=== PATIENT | female | born 1985 | race American Indian/Alaskan Native ===

== ENCOUNTER 2016-12-24 22:48 | Emergency (ER) | payer OTHER ==
[2016-12-24 23:05] VITALS: BP 114/70; RESP 20; TEMP 98.1
[2016-12-24] MEDS ORDERED: Albuterol-Ipratrop 3 mg / 0.5 (3 ml) UD ONE (23:25)
[2016-12-24] MEDS ORDERED: Albuterol-Ipratrop 3 mg / 0.5 (3 ml) UD INH STA (23:25)
--- NOTE | 2016-12-24 23:25 | ED PDOC ---
HPI: SOB/CHF/COPD Time Seen by Provider: 12/24/16 23:13 Chief Complaint (Nursing): Shortness Of Breath Chief Complaint (Provider): asthma symptoms History Per: Patient Additional Complaint(s): 31-year-old female with history of asthma presents to emergency department with shortness of breath and wheezing that started earlier today. Patient denies cough or chest pain. Patient states that she used to use an inhaler but ran out of her inhaler a few months ago. She does not take asthma medications daily. She denies recent travel. Past Medical History Reviewed: Historical Data, Nursing Documentation, Vital Signs Vital Signs: Last Vital Signs Temp 98.1 F 12/24/16 23:03 Pulse 85 12/24/16 23:03 Resp 20 12/24/16 23:03 BP 114/70 12/24/16 23:03 Pulse Ox 100 12/25/16 01:29 - Medical History PMH: Asthma - Surgical History Other surgeries: b/l ACL repair - Family History Family History: States: No Known Family Hx - Living Arrangements Living Arrangements: With Family - Social History Current smoker - smoking cessation education provided: No Alcohol: None Drugs: Denies - Home Medications Home Medications: Ambulatory Orders Medication Instructions Recorded Albuterol HFA [Ventolin HFA 90 1 puff IH ASDIR #1 unit 12/25/16 mcg/actuation (8 g)] predniSONE [Prednisone] 20 mg PO BID #10 tab 12/25/16 - Allergies Allergies/Adverse Reactions: Allergies Allergy/AdvReac Type Severity Reaction Status Date / Time [place] Allergy RASH Uncoded 12/24/16 23:02 fruits Allergy RASH Uncoded 12/24/16 23:02 vegetables Allergy RASH Uncoded 12/24/16 23:02 Wells Criteria for PE - Wells Criteria for Pulmonary Embolism Clinical Signs and Symptoms of DVT: No P.E is #1 Diagnosis, or Equally Likely: No Heart Rate >100: No Immobilization at least 3 days;Surgery previous 4 weeks: No Previous, objectively diagnosed PE or DVT: No Hemoptysis: No Malignancy w/treatment within 6 months, or palliative: No Total Score: 0 Review of Systems ROS Statement: Except As Marked, All Systems Reviewed And Found Negative Constitutional: Negative for: Fever Cardiovascular: Negative for: Chest Pain, Palpitations, Light Headedness Respiratory: Positive for: Shortness of Breath, Wheezing. Negative for: SOB with Exertion Physical Exam - Reviewed Nursing Documentation Reviewed: Yes Vital Signs Reviewed: Yes - Physical Exam Appears: Positive for: Well, Non-toxic, No Acute Distress Skin: Negative for: Rash Eye Exam: Positive for: Normal appearance Cardiovascular/Chest: Positive for: Regular Rate, Rhythm Respiratory: Positive for: Wheezing (bilateral inspiratory and expiratory wheezing). Negative for: Accessory Muscle Use, Crackles, Rales, Rhonchi, Respiratory Distress Back: Negative for: L CVA Tenderness, R CVA Tenderness Extremity: Negative for: Pedal Edema Neurologic/Psych: Positive for: Alert, Oriented - Laboratory Results Urine POC: Negative - ECG O2 Sat by Pulse Oximetry: 100 Pulse Ox Interpretation: Normal - Other Rad CXR X-Ray: Interpreted by Me, Viewed By Me X-Ray Interpretation: no acute infiltrate Nebulizer Treatments/Peak Flow - Duonebs Number of Bronchodilator Doses given?: 2 (duoneb) - Pre/Post Peak Flow Pre Treatment Peak Flow: 200 Post treatment Peak Flow: 275 - Steroid Treatment Steroid: Oral (prednisone 40 mg PO in ED and rx) - Clinical Response Clinical Response: Improved (Wheezing resolved after treatments, patient feels much better) Medical Decision Making Medical Decision Making: Impression: Asthma exacerbation Plan: test CXR Duoneb x 1 Will d/c with rx ventolin and prednisone. Patient was referred to clinic for follow up. Disposition - Clinical Impression Clinical Impression: Asthma exacerbation - Patient ED Disposition Is Patient to be Admitted: No Counseled Patient/Family Regarding: Studies Performed, Diagnosis, Need For Followup, Rx Given - Disposition Referrals: formerly [facility] [Outside] Disposition: Routine/Home Disposition Time: 02:38 Condition: IMPROVED Additional Instructions: Take rx meds as directed. Follow up with primary care doctor or clinic. Prescriptions: Albuterol HFA [Ventolin HFA 90 mcg/actuation (8 g)] 1 puff IH ASDIR #1 unit predniSONE [Prednisone] 20 mg PO BID #10 tab Instructions: Asthma (ED)
[2016-12-25] MEDS ORDERED: Albuterol-Ipratrop 3 mg / 0.5 (3 ml) UD ONE (01:26)
[2016-12-25] MEDS ORDERED: Albuterol-Ipratrop 3 mg / 0.5 (3 ml) UD INH STA (01:27)
[2016-12-25 02:54] VITALS: PULSE 89
[2016-12-25 03:16] VITALS: O2SAT 96
--- NOTE | 2016-12-25 08:53 | RAD ---
HISTORY: asthma COMPARISON: None available. TECHNIQUE: Chest PA and lateral FINDINGS: LUNGS: No focal consolidation. Please note that chest x-ray has limited sensitivity for the detection of pulmonary masses. PLEURA: No significant pleural effusion identified. No definite pneumothorax . CARDIOVASCULAR: The cardiomediastinal silhouette appears within normal limits of size. OSSEOUS STRUCTURES: No acute osseous abnormality identified. VISUALIZED UPPER ABDOMEN: Unremarkable. OTHER FINDINGS: External artifact limits evaluation of the upper chest chest, particularly soft tissues. IMPRESSION: No focal consolidation, significant pleural effusion, or definite pneumothorax identified.
== END 2016-12-25 02:54 | disposition home or self-care (01) ==
LOC: H.ER 22:48
DX: J45.901 Unspecified asthma with (acute) exacerbation (principal)